=== PATIENT | male | born 1975 | race Caucasian/White ===

== ENCOUNTER → 2017-08-05 | Emergency (ER) | payer OTHER ==
[~2017-08-05] VITALS: Ht 167.6 cm; Wt 61.2 kg
[~2017-08-05] MED LIST: ACIDOPHILUS1 EAC1 PO
== END | disposition home or self-care (01) ==
LOC: ER 06:31
DX: K52.9 Noninfective gastroenteritis and colitis, unspecified (principal)

== ENCOUNTER → 2017-10-13 | Outpatient (CLI) | payer OTHER | END | disposition home or self-care (01) | LOC: PPHC 09:31 | DX: Z00.00 Encounter for general adult medical examination without abnormal findings (principal) ==

== ENCOUNTER 2017-12-26 07:31 | Outpatient (CLI) | payer OTHER | END 2017-12-26 07:38 | disposition home or self-care (01) | LOC: LAB 07:31 | DX: D64.89 Other specified anemias (principal); R74.0 Nonspecific elevation of levels of transaminase and lactic acid dehydrogenase [LDH]; E02 Subclinical iodine-deficiency hypothyroidism ==

== ENCOUNTER 2018-01-27 07:28 | Outpatient (CLI) | payer OTHER | END 2018-01-27 07:34 | disposition home or self-care (01) | LOC: LAB 07:28 | DX: E03.8 Other specified hypothyroidism (principal) ==

== ENCOUNTER 2018-02-05 08:45 | Outpatient (CLI) | payer OTHER | END 2018-02-05 15:12 | disposition home or self-care (01) | LOC: RAD 08:45 → MAMO-SONO 11:15 → RAD 15:12 | DX: R07.89 Other chest pain (principal) ==

== ENCOUNTER 2018-02-05 08:54 | Outpatient (CLI) | payer OTHER | END 2018-02-05 15:07 | disposition home or self-care (01) | LOC: SONOGRAMA 08:54 | DX: E05.90 Thyrotoxicosis, unspecified without thyrotoxic crisis or storm (principal) ==

== ENCOUNTER → 2018-05-13 | Emergency (ER) | payer OTHER ==
[~2018-05-13] VITALS: Ht 167.6 cm; Wt 61.7 kg
[~2018-05-13] MED LIST changes: +SYNTHROID50 MCG
== END | disposition home or self-care (01) ==
LOC: ER 21:51
DX: T78.49XA Other allergy, initial encounter (principal); R21 Rash and other nonspecific skin eruption

== ENCOUNTER → 2018-05-15 09:00 | Outpatient (CLI) | payer OTHER | END | disposition home or self-care (01) | LOC: LAB 09:00 | DX: E05.00 Thyrotoxicosis with diffuse goiter without thyrotoxic crisis or storm (principal) ==

== ENCOUNTER 2018-07-28 06:21 | Outpatient (CLI) | payer OTHER | END 2018-07-28 06:27 | disposition home or self-care (01) | LOC: LAB 06:21 | DX: E05.00 Thyrotoxicosis with diffuse goiter without thyrotoxic crisis or storm (principal) ==

== ENCOUNTER 2018-10-28 06:37 | Outpatient (CLI) | payer OTHER | END 2018-10-28 06:43 | disposition home or self-care (01) | LOC: LAB 06:37 | DX: E03.8 Other specified hypothyroidism (principal) ==

== ENCOUNTER → 2018-12-25 07:08 | Outpatient (CLI) | payer OTHER | END | disposition home or self-care (01) | LOC: LAB 07:08 | DX: E03.8 Other specified hypothyroidism (principal); E78.49 Other hyperlipidemia; E55.9 Vitamin D deficiency, unspecified; Z00.00 Encounter for general adult medical examination without abnormal findings ==

== ENCOUNTER 2018-12-25 08:42 | Outpatient (CLI) | payer OTHER | END 2018-12-25 08:44 | disposition home or self-care (01) | LOC: RAD 08:42 | DX: M54.89 Other dorsalgia (principal) ==

== ENCOUNTER 2019-07-26 06:27 | Emergency (ER) | payer OTHER ==
[~2019-07-26] VITALS: Ht 180.3 cm; Wt 63.5 kg
== END 2019-07-26 09:08 | disposition home or self-care (01) ==
LOC: ER 06:27
DX: J11.1 Influenza due to unidentified influenza virus with other respiratory manifestations (principal); B96.0 Mycoplasma pneumoniae [M. pneumoniae] as the cause of diseases classified elsewhere

== ENCOUNTER → 2019-12-02 07:03 | Outpatient (CLI) | payer OTHER | END | disposition home or self-care (01) | LOC: LAB 07:03 | PROVIDERS: ATTEND General Practice | DX: E03.8 Other specified hypothyroidism (principal); E04.2 Nontoxic multinodular goiter; L80 Vitiligo; I10 Essential (primary) hypertension ==

== ENCOUNTER 2019-12-02 08:25 | Outpatient (CLI) | payer OTHER | END 2019-12-02 08:27 | disposition home or self-care (01) | LOC: SONOGRAMA 08:25 | PROVIDERS: ATTEND General Practice | DX: E03.8 Other specified hypothyroidism (principal); E04.2 Nontoxic multinodular goiter ==